=== PATIENT | male | born 1970 | race American Indian/Alaskan Native ===

== ENCOUNTER 2021-03-08 12:50 | Emergency (ER) | payer MEDICARE ==
[2021-03-08 13:27] VITALS: BP 131/81
--- NOTE | 2021-03-08 15:42 | Emergency Department Report ---
ED General Adult HPI - General Chief complaint: Headache Stated complaint: HEALY, BODY PAIN Time Seen by Provider: 03/08/21 14:12 Source: patient Mode of arrival: Ambulatory Limitations: No Limitations - History of Present Illness Initial comments: 50-year-old -[place] male patient with history of schizophrenia and bipolar disorder and well-known to the ED presents with complaints of an intermittent headache for the past 3 days. He states the headache is mild and rates it as a 3/10 in severity. He denies any dizziness, vision changes, numbness/tingling/weakness in his limbs, difficulty with speech or ambulation, or blood thinner use. He has not tried any medications for his symptoms. Patient states he is also here to get medical clearance for [place]. He denies SI/HI or hallucinations Severity scale (0 -10): 10 - Related Data Allergies Allergy/AdvReac Type Severity Reaction Status Date / Time No Known Allergies Allergy Verified 03/08/21 15:44 ED Review of Systems ROS: Stated complaint: HEALY, BODY PAIN Other details as noted in HPI Constitutional: denies: fever, malaise Respiratory: denies: cough, shortness of breath Cardiovascular: denies: chest pain Gastrointestinal: denies: abdominal pain Neurological: headache. denies: weakness, numbness, paresthesias, confusion, abnormal gait ED Physical Exam - General Limitations: No Limitations General appearance: alert, in no apparent distress, obese - Head Head exam: Present: atraumatic, normocephalic - Eye Eye exam: Present: normal appearance - Neck Neck exam: Present: normal inspection - Respiratory Respiratory exam: Absent: respiratory distress - Cardiovascular Cardiovascular Exam: Present: regular rate - Neurological Exam Neurological exam: Present: alert, oriented X3, CN II-XII intact, normal gait. Absent: motor sensory deficit - Psychiatric Psychiatric exam: Present: normal affect, normal mood - Skin Skin exam: Present: warm, dry, intact, normal color. Absent: rash, cyanosis ED Course Vital Signs 03/08/21 03/08/21 13:26 20:20 Temperature 98.0 F Pulse Rate 97 H 92 H Respiratory 14 Rate Blood Pressure 131/81 [Right] O2 Sat by Pulse 98 98 Oximetry ED Medical Decision Making - Lab Data Result diagrams: 03/08/21 17:23 03/08/21 17:23 - Medical Decision Making 50-year-old -[place] male patient with history of schizophrenia and bipolar disorder and well-known to the ED presents with complaints of an intermittent headache for the past 3 days. He states the headache is mild and rates it as a 3/10 in severity. He denies any dizziness, vision changes, numbness/tingling/weakness in his limbs, difficulty with speech or ambulation, or blood thinner use. He has not tried any medications for his symptoms. Patient states he is also here to get medical clearance for [place]. He denies SI/HI or hallucinations Patient given Tylenol and ibuprofen and states his headache has resolved. He is neurologically intact on exam. Patient is medically clear for psych facility in edition Critical care attestation.: If time is entered above; I have spent that time in minutes in the direct care of this critically ill patient, excluding procedure time. ED Disposition Clinical Impression: Medical clearance for psychiatric admission Disposition: HOME / SELF CARE / HOMELESS Is pt being admited?: No Condition: Stable Additional Instructions: You are medically cleared for admission to a psychiatric facility Referrals: PRIMARY MD RYANN [Primary Care Provider] - 3-5 Days
[2021-03-08] MEDS ORDERED: IBUPROFEN 800 MG TAB PO STA (15:45)
[2021-03-08] MEDS ORDERED: ACETAMINOPHEN 500 MG TAB PO STA (15:45)
[2021-03-08 17:43] LABS: Basophils # (Auto) 0.1 K/mm3 (0.0-0.1); Basophils % (Auto) 0.8 % (0.0-1.8); Eosinophils # (Auto) 0.1 K/mm3 (0.0-0.4); Eosinophils % (Auto) 1.1 % (0.0-4.3); Lymphocytes # (Auto) 2.5 K/mm3 (1.2-5.4); Lymphocytes % (Auto) 37.5 % (13.4-35.0); Mean Corpuscular HGB Conc 31 % (32-34); Mean Corpuscular Volume 72 fl (84-94); Monocytes % (Auto) 15.6 % (0.0-7.3); Platelet Count 128 K/mm3 (140-440); Red Blood Count 5.37 M/mm3 (3.65-5.03); Red Cell Distribution Width 15.7 % (13.2-15.2)
[2021-03-08 17:59] LABS: Bilirubin,Urine NEG (Negative); Blood,Urine NEG (Negative); Color,Urine Yellow (Yellow); Mucus,Urine 3+ /HPF; RBC,Urine < 1.0 /HPF (0.0-6.0)
[2021-03-08 18:01] LABS: Hematocrit 38.8 % (35.5-45.6); Hemoglobin 11.9 gm/dl (11.8-15.2)
[2021-03-08 18:06] LABS: Amphetamine Screen,Urine Negative; Benzodiazepines Screen,Urine Negative; Cannabinoid Screen,Urine Negative; Cocaine Screen,Urine Negative; Methadone Screen,Urine Negative; Opiate Screen,Urine Negative
[2021-03-08 18:10] LABS: Alanine Aminotransferase 13 units/L (7-56); Blood Urea Nitrogen 19 mg/dL (9-20); Hemolysis Index 3
[2021-03-08 18:20] LABS: BUN/Creatinine Ratio 32
== END 2021-03-08 20:19 | disposition home or self-care (01) ==
LOC: ED 12:50
DX: Z13.30 Encounter for screening examination for mental health and behavioral disorders, unspecified (principal); Z79.899 Other long term (current) drug therapy
CPT/HCPCS: 36415; 80053; 80307; 80320; 81001; 85025; 99283; G0480

== ENCOUNTER 2021-03-10 15:45 | Emergency (ER) | payer MEDICARE ==
[2021-03-10 16:05] VITALS: BP 137/77
--- NOTE | 2021-03-10 17:18 | Emergency Department Report ---
ED Extremity Problem HPI - General Chief complaint: Extremity Problem,Nontraumatic Stated complaint: LEG PROBLEM Time Seen by Provider: 03/10/21 17:01 Source: patient, old records reviewed (Patient is here under multiple account number) Mode of arrival: Ambulatory Limitations: No Limitations - History of Present Illness Initial comments: 50-year-old male with a past medical history of bipolar schizophrenia and frequent ER visits for variety of complaints presents to the hospital complaining of chronic leg edema and cracks in the skin of his lower ex tremities. Patient has chronic intermittent leg edema that fluctuates in severity. He states that he needs a cream for the skin cracks to have formed on his lower extremities. Patient denies pain or fever. Patient was seen here most recently March 08 had last performed - Related Data Previous Rx's Medication Instructions Recorded Last Taken Type Mineral Oil/Hydrophil Petrolat 50 gm TP BID #1 oint...g. 03/10/21 Unknown Rx [Aquaphor Healing Ointment] Allergies Allergy/AdvReac Type Severity Reaction Status Date / Time No Known Allergies Allergy Verified 03/08/21 15:44 ED Review of Systems ROS: Stated complaint: LEG PROBLEM Other details as noted in HPI Comment: All other systems reviewed and negative ED Past Medical Hx - Medications Home Medications: Home Medications Medication Instructions Recorded Confirmed Last Taken Type Mineral Oil/Hydrophil Petrolat 50 gm TP BID #1 oint...g. 03/10/21 Unknown Rx [Aquaphor Healing Ointment] ED Physical Exam - General Limitations: No Limitations - Other Other exam information: General: No acute distress Head: Atraumatic Eyes: normal appearance ENT: Moist mucous membranes Neck: Normal appearance, no midline tenderness Chest: Clear to auscultation bilaterally CV: Regular rate and rhythm Abdomen: Soft, normal bowel sounds, nontender, nondistended, no rebound or guarding Back: Normal inspection Extremity: Bilateral lower extremity pitting edema 2+ equal bilaterally without isolated calf tenderness, warmth, or erythema. Patient does have superficial cracking to skin without signs of infection or drainage Neuro: Alert O x 3, no facial asymmetry, speech clear, no gross motor sensory d eficit Psych: Appropriate behavior Skin: No rash ED Course Vital Signs 03/10/21 16:03 Temperature 97.5 F L Pulse Rate 88 Respiratory 18 Rate Blood Pressure 137/77 [Right] O2 Sat by Pulse 97 Oximetry ED Medical Decision Making - Medical Decision Making 50-year-old male with a past medical history of chronic intermittent leg edema presents to the hospital complaining of cracks to his skin. Patient has superficial cracking to his skin which likely is result of dry skin and the intermittent stretching of his skin secondary to fluctuating leg edema. No signs of infection at this time. Patient is afebrile. Patient was here March 08 and had lab work that revealed a normal kidney function, liver function, and albumin. Patient does not induce shortness of breath and has clear breath sounds without crackles. Patient admits to not elevating his legs. Patient encouraged to elevate his legs and will be encouraged to buy a moisturizing cream Critical Care Time: No Critical care attestation.: If time is entered above; I have spent that time in minutes in the direct care of this critically ill patient, excluding procedure time. ED Disposition Clinical Impression: Leg edema, Dry skin Disposition: HOME / SELF CARE / HOMELESS Is pt being admited?: No Does the pt Need Aspirin: No Condition: Stable Instructions: Edema Additional Instructions: Keep legs elevated. Follow-up with your doctor or doctor/clinic provided. Return if symptoms worsen as indicated by your discharge instructions. Prescriptions: Mineral Oil/Hydrophil Petrolat [Aquaphor Healing Ointment] 50 gm TP BID #1 oint...g. Referrals: PRIMARY CARE [Primary Care Provider] - 3-5 Days [facility] [Provider Group] - 3-5 Days Time of Disposition: 17:19
== END 2021-03-10 17:38 | disposition home or self-care (01) ==
LOC: ED 15:45
DX: R60.0 Localized edema (principal); L85.3 Xerosis cutis
CPT/HCPCS: 99282